=== PATIENT | male | born 1995 | race Hispanic/Latino ===

== ENCOUNTER 2025-01-10 21:12 | Emergency (ER) | payer BC ==
[~2025-01-10] VITALS: Ht 170.2 cm; Wt 86.2 kg
--- NOTE | 2025-01-10 21:14 | NUR ---
COVID, FLU AND STREP SWABS COLLECTED AND SENT
[2025-01-10 21:29] LABS: RAPID GROUP A STREP negative (NEGATIVE)
[2025-01-10 21:33] LABS: SARS-CoV-2, RNA, NAAT NEGATIVE SARS CoV-2 (NEGATIVE)
[2025-01-10 21:39] LABS: INFLUENZA TYPE A Negative For Type A (NEGATIVE); INFLUENZA TYPE B Negative For Type B (NEGATIVE)
[2025-01-10 22:00] VITALS: PULSE 79; RESP 17
[2025-01-10] MEDS: IpraTROPium/alBUTERol SULFATE 3 ML SOLUTION IH ONE (22:00)
--- NOTE | 2025-01-10 22:15 | HMCIMG ---
CHEST 1VW HISTORY: Cough COMPARISON: None FINDINGS: A frontal projection of the chest was obtained. Prominent interstitial markings are seen with possible superimposed infiltrates. The heart is borderline enlarged. Mild degenerative changes are seen. No evidence of aortic calcification is seen. IMPRESSION: 1. Prominent interstitial markings are seen with possible superimposed infiltrates.
--- NOTE | 2025-01-10 22:20 | ERN ---
ED Note History of Present Illness Stated Complaint: COUGH Chief Complaint: Cough Time Seen by MD: 21:14 Time Seen by Midlevel: 21:14 Dictation: Patient is a 29-year-old male with no past medical history who presents to the emergency department with complaints of cough, nasal congestion, sore throat onset 1-1/2 weeks ago. Patient reports clear phlegm, denies any fevers, nausea or vomiting. Denies any other symptoms. Allergies: Coded Allergies: No Known Allergies (Unverified Allergy, Unknown, 01/10/25) Past Medical History Past Medical History: No Pertinent History Surgical History: None RN Note Reviewed/Agreed w/PFSH: Yes Review of System Dictation Constitutional: Negative for fever,chills, and weight loss Eyes: Negative for injury, pain,redness, and discharge ENT: Negative for injury,pain or swelling Cardiovascular: Negative for chest pain, palpitations, and edema Respiratory: Negative for shortness of breath,, and wheezing, positive for cough Abdomen/GI: Negative for abdominal pain, nausea, vomiting, diarrhea, and constipation Back: Negative for injury and pain : Negative for injury, bleeding and discharge MS/Extremity: Negative for injury and deformity Skin: Negative for rash, and discoloration Neuro: Negative for headache, weakness, numbness, tingling, and seizure Psych: Negative for suicide ideation, homicidal ideation, and hallucinations Initial Vital Sign VS Vital Signs Date Time Temp Pulse Resp B/P (MAP) Pulse Ox O2 Delivery O2 Flow Rate FiO2 01/10/25 21:14 98.4 92 18 148/92 98 Room Air Physical Exam Dictation Vital Signs reviewed General Appearance: Alert, oriented x 3, no acute distress, well developed, nourished. Head and Face: non-traumatic. Eyes: PERRL, pink conjunctivas, eyelid no trauma, anterior chamber with arcus senilis. Ears: Pinnas intact and no signs of trauma or erythema ear canals clear and no discharge TM no erythema Nose: No discharge, no bleeding. Oropharynx: Mouth normal, tongue pink. pharynx clear,no erythema, tonsils no exudates, no abscesses noted, mucous membrane moist Neck: Supple, non-tender, no thyromegaly, no masses, no JVD, no bruits Breast:Deferred Chest:No tenderness, no crepitus, no paradoxical movement, no retractions Lungs:Clear, well-ventilated, symmetric, no rales, no wheezing, no rhonchi, no stridor, good breath sounds bilaterally Heart: Regular rate, regular rhythm, no murmur, no gallops Vascular: no peripheral edema, Abdomen: Soft, positive bowel sounds, nondistended, no guarding, nontender, no rebound, no masses no hepatomegaly, no splenomegaly, no Hanley's sign, no hernias. Rectal: Deferred Genital: Deferred Neurological: Normal speech, motor function intact, sensory function intact Musculoskeletal: Neck nontender, full range of motion, back nontender, full range of motion, Extremities: nontender, full range of motion Skin: Color pink, dry, no turgor, no rash, no lacerations, no abrasions, no contusions. 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 Prominent interstitial markings are seen with possible superimposed infiltrates. The heart is borderline enlarged. Mild degenerative changes are seen. No evidence of aortic calcification is seen. IMPRESSION: 1. Prominent interstitial markings are seen with possible superimposed infiltrates. Labs Reviewed?: Yes ED Course ED Course Orders Procedure Category Date Status Time Covid Rna Naat LAB 01/10/25 Complete 21:14 Influenza Type A & B, LAB 01/10/25 Complete Rapid 21:14 Rapid (Group A Strep) LAB 01/10/25 Complete 21:14 Chest 1vw RAD 01/10/25 Resulted 21:24 Dexamethasone 4mg/Ml PHA 01/10/25 Complete 1ml Vial (Dexametha 21:30 Ipratropium/Albuterol PHA 01/10/25 Complete Neb (Duoneb) 21:30 Current Medications Medications (Trade) Dose Ordered Sig/Atul Route PRN Reason Start Time Stop Time Status Last Admin Dose Admin Albuterol (DUOneb) 1 UDVIAL ONCE ONCE IH 01/10/25 21:30 01/10/25 21:31 DC 01/10/25 22:00 Dexamethasone Sodium Phosphate (dexaMETHasone 4MG/ML 1ML VIAL) 6 mg ONCE ONCE IM 01/10/25 21:30 01/10/25 21:31 DC Vital Signs Date Time Temp Pulse Resp B/P (MAP) Pulse Ox O2 Delivery O2 Flow Rate FiO2 01/10/25 22:00 79 17 01/10/25 21:14 98.4 92 18 148/92 98 Room Air Medical Decision Making MDM Patient is a 29-year-old male with no past medical history who presents to the emergency department with complaints of cough, nasal congestion, sore throat onset 1-1/2 weeks ago. Patient reports clear phlegm, denies any fevers, nausea or vomiting. Denies any other symptoms. Serology negative. Patient has symptoms consistent with a an upper respiratory infection. X-ray showed prominent interstitial markings with possible superimposed infiltrates. Patient in no acute distress, stable vital signs. Will be discharged to follow up with PCP. Differential diagnosis: Upper respiratory infection, pneumonia, strep throat Need for hospitalization: Patient does not meet criteria for hospitalization. There are no social concerns with this patient. DX & DISP Disposition: Discharge Departure Impression: Primary Impression: Pneumonitis Additional Impression: Cough Condition: Stable Scripts Albuterol Sulfate (Ventolin Hfa/Proventil Hfa/Proair Hfa) 90 Mcg Puff 1-2 PUFF IH Q4H PRN for SHORTNESS OF BREATH for 5 Days, #1 INH 0 Refills PHARMACY TO DISPENSE 1 INHALER FOR USE Prov: ESTEFANI LONGORIA 01/10/25 Methylprednisolone (Medrol) 4 Mg Tab.ds.pk 4 MG PO AD for 6 Days, #1 PACK Day 1: Take 2 tablets before breakfast,1 tablet after lunch and supper, and 2 tablets at bedtime. Day 2: Take1 tablet before breakfast,1 tablet after lunch,1 tablet after supper, and 2 tablets at bedtime. Day 3: Take 1 tablet before breakfast, 1 tablet after lunch, 1 tablet after supper, and 1 tablet at bedtime. Day 4: Take 1 tablet before breakfast, 1 tablet after lunch, and 1 tablet at bedtime. Day 5: Take1 tablet before breakfast and 1 tablet at bedtime. Day 6: Take 1 tablet before breakfast. Prov: ESTEFANI LONGORIA 01/10/25 Azithromycin (Zithromax) 250 Mg Tablet 250 MG PO AD for 5 Days, #6 TAB Take 2 250 mg tablets on day 1, then take 1 250mg tablets daily for 4 days Prov: ESTEFANI LONGORIA 01/10/25 Additional Instructions: Please follow up with your primary doctor in 1-2 days. If symptoms worsen please return to ER. FOLLOW-UP WITH PRIMARY CARE PROVIDER IN 1 TO 2 DAYS. TAKE MEDICATIONS DIRECTED HERE IN THE EMERGENCY ROOM. OKAY TO CONTINUE HOME MEDICATIONS UNLESS OTHERWISE DISCUSSED DURING YOUR VISIT IN THE EMERGENCY ROOM TODAY. RETURN TO YOUR NEAREST EMERGENCY ROOM IF SYMPTOMS WORSEN OR IF THERE IS NO IMPROVEMENT. CALL 911 IF YOU NEED IMMEDIATE ASSISTANCE. TAKE TYLENOL OR MOTRIN [id number] NEEDED AND IF NO CONTRAINDICATIONS ARE PRESENT. INCREASE ORAL HYDRATION. A WOUND CULTURE OR URINE CULTURE WAS ORDERED HERE IN THE EMERGENCY ROOM DEPARTMENT PLEASE FOLLOW-UP WITH PRIMARY CARE PROVIDER AND ADVISE THEM TO GET REPEAT PORTS FROM OUR FACILITY. IF YOU HAD ANY NATASHA WRAP/SPLINTS THAT WERE APPLIED HERE, PLEASE DO NOT REMOVE THEM UNTIL YOU SEE YOUR PRIMARY CARE OR SPECIALTY. Referrals: SELF,REFERRAL (PCP) Time of Disposition: 22:22 I have reviewed the case, and I agree with, Diagnosis and Plan ESTEFANI LONGORIA January 10, 2025 22:20
[2025-01-10] MEDS ORDERED: ALBUHFA IH (22:24)
[2025-01-10] MEDS ORDERED: AZIT250T PO (22:24)
[2025-01-10] MEDS ORDERED: METH4TAB3 PO (22:24)
[2025-01-10] MEDS: dexaMETHasone SOD PHOSPHATE 4 MG/ML 1ML VIAL IM ONE (22:47)
[2025-01-10] MEDS: acetaMINOPHEN 500 MG TABLET ONE (23:06)
[2025-01-10] MEDS: acetaMINOPHEN 500 MG TABLET PO ONE (23:06)
[2025-01-10 23:14] VITALS: BP 126/79; PULSE 70; RESP 18; TEMP 98.3; O2SAT 99
== END 2025-01-10 23:16 | disposition home or self-care (01) ==
LOC: EDH 21:12
DX: J98.4 Other disorders of lung (principal); Z20.822 Contact with and (suspected) exposure to COVID-19
CPT/HCPCS: 99284; 71045; 87635; 87880; 87804 ×2; 96372; 94640; J1100 ×2